=== PATIENT | male | born 1995 | race Two or more races ===

== ENCOUNTER 2017-12-04 22:55 | Emergency (ER) | payer OTHER ==
[2017-12-04] MEDS ORDERED: LET GEL TOPICAL 1 EA SYR TP ONE ×2 (23:19→23:21)
--- NOTE | 2017-12-04 23:55 | EDPHY ---
H & P Stated Complaint: "Stepped in sea urchins in [place]", right foot Time Seen by Provider: 12/04/17 23:07 HPI/ROS: HPI The patient presents with right foot foreign body for the last 1 week after stepping on a sea urchin. He has multiple sea urchin spines in his sole of his foot. They are slightly painful. He does not have any redness or swelling of his foot. As he attempted removal, though found this difficult so comes into the emergency department. REVIEW OF SYSTEMS Constitutional: No fever, no chills. Eyes: No discharge. ENT: No sore throat. Cardiovascular: No chest pain, no palpitations. Respiratory: No cough, no shortness of breath. Gastrointestinal: No abdominal pain, no vomiting. Genitourinary: No hematuria. Musculoskeletal: No back pain. Skin: No rashes. Neurological: No headache. PMHx: Healthy Soc Hx: College student PHYSICAL General Appearance: Alert, no distress Eyes: Pupils equal and round no pallor or injection ENT, Mouth: Mucous membranes moist Respiratory: Breathing comfortably Neurological: A&O, moves all extremities Skin: Warm and dry, no rashes Musculoskeletal: Neck is supple non tender Extremities: Right plantar surface of foot with 30-40 black spine like thin foreign bodies Psychiatric: Patient is oriented X 3, there is no agitation Source: Patient Exam Limitations: No limitations - Personal History Current Tetanus Diphtheria and Acellular Pertussis (TDAP): Yes - Medical/Surgical History Hx Asthma: No Hx Chronic Respiratory Disease: No Hx Diabetes: No Hx Cardiac Disease: No Hx Renal Disease: No Hx Cirrhosis: No Hx Alcoholism: No Hx HIV/AIDS: No Hx Splenectomy or Spleen Trauma: No Other PMH: denies - Social History Smoking Status: Never smoked Constitutional: Initial Vital Signs Temperature (C) 36.4 C 12/04/17 22:57 Heart Rate 77 12/04/17 22:57 Respiratory Rate 18 12/04/17 22:57 Blood Pressure 109/59 L 12/04/17 22:57 O2 Sat (%) 95 12/04/17 22:57 O2 Delivery Mode Room Air Allergies/Adverse Reactions: No Known Allergies Allergy (Unverified 12/04/17 22:56) Home Medications: Medication Instructions Recorded Cephalexin [Keflex (*)] 500 mg PO Q6H #28 cap 12/05/17 Doxycycline Hyclate 100 mg PO BID #14 tab 12/05/17 Medical Decision Making Differential Diagnosis: This is a 22-year-old male, who stepped on a sea urchin 1 week ago while traveling to [place] who presents with foreign bodies from the spines in his right foot. There are no signs of infection, no redness, no edema. In the emergency department, let was applied to the patient's ft. Then we were able to remove multiple spines without difficulty. There was a small amount of pus extracted during this process. Some of them were still imbedded and we were unable to remove them despite best attempts. I will discharge the patient with Keflex and doxycycline to prevent infection given the pus that was present. As I have advised him to do warm soaks and cover his foot with antibiotic ointment. I have given him follow-up information for Podiatry if he has any symptoms after 1 week. - Data Points Medications Given: Discontinued Medications Cephalexin HCl (Keflex) 500 mg PO EDNOW ONE PRN Reason: Protocol Stop: 12/05/17 00:52 Last Admin: 12/05/17 00:55 Dose: 500 mg Doxycycline Hyclate (Doxycycline Hyclate) 100 mg PO EDNOW ONE PRN Reason: Protocol Stop: 12/05/17 00:52 Last Admin: 12/05/17 00:55 Dose: 100 mg Tetracaine/Epinephrine/Lidocaine (Let Gel Topical) 1 ea TP EDNOW ONE Stop: 12/04/17 23:22 Last Admin: 12/04/17 23:22 Dose: 1 ea Departure - Departure Disposition: Home, Routine, Self-Care Clinical Impression: Foreign body in foot, right Qualifiers: Encounter type: initial encounter Qualified Code(s): S90.851A - Superficial foreign body, right foot, initial encounter Condition: Good Instructions: Soft Tissue Foreign Body (ED) Additional Instructions: We were able to remove most of the sea urchin from your foot. However, there is still some material embedded. I will give you a course of antibiotics to take to prevent any infection. You should also use an antibiotic ointment and a dressing twice a day. If you continue to have pain after this, I will refer you to the lens cleaner to you could see for follow-up. Referrals: Salma Francisco [Doctor of Podiatric Medicine] - As per Instructions Prescriptions: Cephalexin [Keflex (*)] 500 mg PO Q6H #28 cap Doxycycline Hyclate 100 mg PO BID #14 tab
[2017-12-05] MEDS ORDERED: DOXYCYCLINE HYCLATE 100 MG CAP/TAB PO ONE (00:51)
[2017-12-05] MEDS ORDERED: CEPHALEXIN 500 MG CAP PO ONE (00:51)
[2017-12-05 01:04] VITALS: BP 118/64; PULSE 64; RESP 16; TEMP 97.7; O2SAT 97
== END 2017-12-05 01:02 | disposition home or self-care (01) ==
DX: S90.851A Superficial foreign body, right foot, initial encounter (principal); W56.89XA Other contact with other nonvenomous marine animals, initial encounter

== ENCOUNTER 2018-03-03 16:54 | Emergency (ER) | payer OTHER ==
[2018-03-03] MEDS ORDERED: NS 1,000 ML IV ONE (17:11)
[2018-03-03] MEDS ORDERED: METOCLOPRAMIDE 10 MG/2 ML VIAL IVP ONE (17:12)
[2018-03-03] MEDS ORDERED: KETOROLAC 30 MG/1 ML SDV IVP ONE (17:12)
--- NOTE | 2018-03-03 17:12 | EDPHY ---
HPI/HX/ROS/PE/MDM Narrative: CHIEF COMPLAINT: "I have a headache" HPI: The patient is a 22 y/o male complaining of a right-sided frontal headache onset one hour ago while walking in the sun. His pain radiates across the right side of his forehead He's had similar headaches previously, but none as severe as today. He denies recent trauma or illness. No associated nausea, vomiting, fever, abdominal pain, weakness, paresthesias, vision changes, speech difficulty , or other complaints. He is normally healthy. REVIEW OF SYSTEMS: Aside from elements discussed in the HPI, a comprehensive 10-point review of systems was reviewed and is negative. PMH: Denies SOCIAL HISTORY: Student. Lives in [place]. PHYSICAL EXAM: General:Patient is alert, in no acute distress. ENT:Eyes are normal to inspection. ENT inspection normal. Neck: Normal inspection. Full range of motion. No meningismus. Respiratory:No respiratory distress. Breath sounds normal bilaterally. Cardiovascular: Regular rate and rhythm. Strong peripheral pulses. Normal cap refill. Abdomen:The abdomen is nontender to palpation. There are no peritoneal signs. Back: Normal to inspection. No tenderness to palpation. Skin: Normal color. No rash. Warm and dry. Extremities: Normal appearance. Full range of motion. Neuro: Oriented x3. Normal motor function. Normal sensory function. Normal gait. CN2-12 intact. Normal speech. ED Course: This is a normally-healthy 22 y/o male who presents with a 1-hour history of a frontal headache. His pain began while walking and he cannot identify any obvious aggravating or precipitating factors. No other symptoms. He has a normal neuro exam. Suspect migraine as patient has had similar, but more mild headaches previously. Plan for IV and migraine cocktail. 1L IV NS, 10mg IV Reglan, 25mg IV Benadryl, 30mg IV Toradol ordered. 1835: Reassessed patient. Headache is slightly improved, but not resolved. Neuro exam remains normal. Head CT ordered. 0.5mg IV Dilaudid ordered for pain. Head CT is negative. Reassessed patient and discussed findings. He is feeling improved. Neuro exam remains normal. He will be discharged home with standard headache care and follow up instructions. Return precautions discussed. He is comfortable with plan for discharge. MDM: This patient presents with non-specific headache that seems most consistent with migraine headache. There are no red flags such as sudden onset, associated neuro symptoms or history of brain disease to suggest SAH. There are no infectious symptoms to suggest meningitis. The patient feels much relieved after medications and declined further workup. - Data Points Imaging Results: Imaging Impressions Head CT 03/03/18 18:40 Impression: Normal CT of the head. Specifically, a headache source is not identified. Results called and discussed with Leighton Calabrese MD on 03/03/2018 at 19:28. Imaging: Discussed imaging studies w/ call or contact centre manager Radiologist, I viewed and interpreted images myself Laboratory Results: Laboratory Results 03/03/18 16:55 03/03/18 16:55 03/03/18 03/03/18 16:55 16:55 WBC 5.54 10^3/uL 10^3/uL (3.80-9.50) RBC 5.48 10^6/uL 10^6/uL (4.40-6.38) Hgb 15.7 g/dL g/dL (13.7-17.5) Hct 45.8 % % (40.0-51.0) MCV 83.6 fL fL (81.5-99.8) MCH 28.6 pg pg (27.9-34.1) MCHC 34.3 g/dL g/dL (32.4-36.7) RDW 13.5 % % (11.5-15.2) Plt Count 222 10^3/uL 10^3/uL (150-400) MPV 9.6 fL fL (8.7-11.7) Neut % (Auto) 53.1 % % (39.3-74.2) Lymph % (Auto) 37.7 % % (15.0-45.0) Rankin % (Auto) 5.2 % % (4.5-13.0) Eos % (Auto) 3.1 % % (0.6-7.6) Baso % (Auto) 0.5 % % (0.3-1.7) Nucleat RBC Rel Count 0.0 % % (0.0-0.2) Absolute Neuts (auto) 2.94 10^3/uL 10^3/uL (1.70-6.50) Absolute Lymphs (auto) 2.09 10^3/uL 10^3/uL (1.00-3.00) Absolute Monos (auto) 0.29 10^3/uL L 10^3/uL (0.30-0.80) Absolute Eos (auto) 0.17 10^3/uL 10^3/uL (0.03-0.40) Absolute Basos (auto) 0.03 10^3/uL 10^3/uL (0.02-0.10) Absolute Nucleated RBC 0.00 10^3/uL 10^3/uL (0-0.01) Immature Gran % 0.4 % % (0.0-1.1) Immature Gran # 0.02 10^3/uL 10^3/uL (0.00-0.10) Sodium 140 mEq/L mEq/L (135-145) Potassium 4.1 mEq/L mEq/L (3.3-5.0) Chloride 103 mEq/L mEq/L (97-110) Carbon Dioxide 25 mEq/l mEq/l (22-31) Anion Gap 12 mEq/L mEq/L (8-16) BUN 16 mg/dL mg/dL (7-23) Creatinine 0.8 mg/dL mg/dL (0.7-1.3) Estimated GFR > 60 Glucose 111 mg/dL H mg/dL (70-100) Calcium 10.3 mg/dL mg/dL (8.5-10.4) Medications Given: Discontinued Medications Diphenhydramine HCl (Benadryl Injection) 25 mg IVP EDNOW ONE Stop: 03/03/18 17:13 Last Admin: 03/03/18 17:19 Dose: 25 mg Hydromorphone HCl (Dilaudid) 0.5 mg IVP EDNOW ONE Stop: 03/03/18 18:40 Last Admin: 03/03/18 18:43 Dose: 0.5 mg Sodium Chloride (Ns) 1,000 mls @ 0 mls/hr IV EDNOW ONE; Wide Open PRN Reason: Protocol Stop: 03/03/18 17:12 Last Admin: 03/03/18 17:19 Dose: 1,000 mls Ketorolac Tromethamine (Toradol) 30 mg IVP EDNOW ONE Stop: 03/03/18 17:13 Last Admin: 03/03/18 17:20 Dose: 30 mg Metoclopramide HCl (Reglan Injection) 10 mg IVP EDNOW ONE Stop: 03/03/18 17:13 Last Admin: 03/03/18 17:19 Dose: 10 mg General Time Seen by Provider: 03/03/18 17:08 Initial Vital Signs: Initial Vital Signs Temperature (C) 36.5 C 03/03/18 16:57 Heart Rate 56 L 03/03/18 16:57 Respiratory Rate 19 03/03/18 16:57 Blood Pressure 134/90 H 03/03/18 16:57 O2 Sat (%) 98 03/03/18 16:57 O2 Delivery Mode Room Air Allergies/Adverse Reactions: No Known Allergies Allergy (Unverified 12/04/17 22:56) Home Medications: Medication Instructions Recorded NK [No Known Home Meds] 03/03/18 Departure - Departure Disposition: Home, Routine, Self-Care Clinical Impression: Migraine Qualifiers: Migraine type: other Status migrainosus presence: without status migrainosus Intractability: not intractable Qualified Code(s): G43.809 - Other migraine, not intractable, without status migrainosus Condition: Good Instructions: Migraine Headache (ED), Acute Headache (ED) Additional Instructions: 1. Use Exedrin as directed on the packaging as needed for headache over the next couple days. 2. Follow up with neurology for unimproved symptoms over the next 2-3 days. 3. Return to the ED for severe pain, weakness or numbness on one side of your body, speech difficulty, fever, vision changes, or other worsening of condition. Referrals: Terry Gutierrez MD [Medical Doctor] - As per Instructions Report Scribed for: Leighton Calabrese Report Scribed by: Melvina Wells Date of Report: 03/03/18 Time of Report: 17:12 Physician Review and Approval Statement: Portions of this note were transcribed by an ED scribe. I personally performed the history, physical exam, and medical decision making; and confirm the accuracy of the information in the transcribed note.
[2018-03-03 17:26] LABS: PLATELET COUNT 222 10^3/uL (150-400)
[2018-03-03] MEDS ORDERED: HYDROmorphONE/DILAUDID 2 MG/ML INJ IVP ONE (18:39)
[2018-03-03 19:54] VITALS: BP 120/53
== END 2018-03-03 20:10 | disposition home or self-care (01) ==
DX: G43.809 Other migraine, not intractable, without status migrainosus (principal); E86.9 Volume depletion, unspecified
CPT/HCPCS: 96374; J1170; J1200; J1885; J2765